=== PATIENT | female | born 1950 | race Caucasian/White ===

== ENCOUNTER 2018-01-01 02:58 | Emergency (ER) | payer MEDICARE ==
[~2018-01-01] VITALS: Ht 160 cm; Wt 80.0 kg
[~2018-01-01 02:58] MED LIST: ATEN-100 PO; CLON1 PO; DYAZ37.57 PO; KLOR8TAB PO; WELL200T PO
[2018-01-01 03:07] VITALS: BP 144/66; PULSE 78; RESP 14; TEMP 98.6; O2SAT 98
[2018-01-01] MEDS ORDERED: CLON1 PO (03:14)
[2018-01-01] MEDS ORDERED: BUPR150CR PO (03:14)
[2018-01-01] MEDS ORDERED: DYAZ37.5 PO (03:15)
[2018-01-01] MEDS ORDERED: KLOR8TAB PO (03:15)
--- NOTE | 2018-01-01 04:01 | RADRPT ---
EXAM DATE/TIME: 01/01/2018 03:32 [facility] COMPARISON: No previous studies available for comparison. INDICATIONS : Fall. Right shoulder pain. MEDICAL HISTORY : None. SURGICAL HISTORY : None. ENCOUNTER: Initial ACUITY: 1 day PAIN SCORE: 9/10 LOCATION: Right scapular FINDINGS: Single view of the right shoulder shows a comminuted fracture of the surgical and anatomic necks and also the greater tuberosity of the right humerus. The neck fracture has some associated medial displa cement and lateral angulation deformity. The tuberosity fracture does not appear significantly displa main. No subluxations. 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 CONCLUSION: Comminuted neck and greater tuberosity fracturing of the right humerus. Blaise Dobbins MD on January 01, 2018 at 3:59 Board Certified Radiologist. This report was verified electronically.
--- NOTE | 2018-01-01 04:02 | RADRPT ---
EXAM DATE/TIME: 01/01/2018 03:35 [facility] COMPARISON: No previous studies available for comparison. INDICATIONS : Fall. Right scapular pain. MEDICAL HISTORY : None. SURGICAL HISTORY : None. ENCOUNTER: Initial ACUITY: 1 day PAIN SCORE: 8/10 LOCATION: Right scapular FINDINGS: Two view examination of the right clavicle demonstrates no evidence of fracture. The sternoclavicula r joints and acromioclavicular joints are maintained. Bony mineralization is normal. CONCLUSION: Intact right clavicle. Blaise Dobbins MD on January 01, 2018 at 4:00 Board Certified Radiologist. This report was verified electronically.
--- NOTE | 2018-01-01 04:16 | PD ---
HPI Chief Complaint: Fall Time Seen by Provider: 03:05 Travel History International Travel<30 days: No Contact w/Intl Traveler<30days: No Traveled to known affect area: No History of Present Illness HPI Patient is a 67-year-old female who lives alone. She says she takes Klonopin 2 mg to go to sleep. Last night she took her medication to go to sleep and then she thought she saw the light motion sensor go on in her kitchen. She was very nervous she got up to go see. She had a rug that was rolled up that was a brand -new rug and she tripped over and fell against the floor and smashed her right shoulder. She was unable to move for half an hour she finally was able to call 911 and the paramedics found her to be lying on the floor and severe pain right shoulder en route she got 10 mg IV of morphine and on top of the Klonopin she takes to go to sleep she is very sedated. And her telling me of her history she is very tearful as she describes her situation and her recent passing away patient is in a sling pulse is sensation is intact distal to her fracture PFSH Past Medical History Asthma: No Anxiety: Yes (IVIS) Depression: Yes COPD: No Diminished Hearing: No Tetanus Vaccination: Unknown Influenza Vaccination: No Para: 1 Tubal Ligation: Yes Past Surgical History Cholecystectomy: Yes Hysterectomy: Yes Mastectomy: Yes (RIGHT) Social History Alcohol Use: Yes (RARE) Tobacco Use: No Substance Use: No Allergies-Medications (Allergen,Severity, Reaction): Coded Allergies: No Known Allergies (Verified Allergy, Severe, 01/01/18) Reported Meds & Prescriptions Reported Meds & Active Scripts Active Ibuprofen 600 Mg Tab 600 Mg PO Q6H PRN Reported Dyazide (Triamterene-Hydrochlorothiazide) 37.5-25 Mg Cap 1 Cap PO DAILY Klor-Con 8 (Potassium Chloride) 8 Meq Tab 8 Meq PO BID Klonopin (Clonazepam) 1 Mg Tab 1 Mg PO TID Wellbutrin SR 12 HR (Bupropion HCl) 150 Mg Tab 150 Mg PO Q12HR Review of Systems Except as stated in HPI: all other systems reviewed are Neg Physical Exam Narrative GENERAL: Patient is awake but she is very sedated talking very slowly tearful slurring words SKIN: Warm and dry. HEAD: Atraumatic. Normocephalic. EYES: Pupils equal and round. No scleral icterus. No injection or drainage. ENT: No nasal bleeding or discharge. Mucous membranes pink and moist. NECK: Trachea midline. No JVD. CARDIOVASCULAR: Regular rate and rhythm. RESPIRATORY: No accessory muscle use. Clear to auscultation. Breath sounds equal bilaterally. GASTROINTESTINAL: Abdomen soft, non-tender, nondistended. Hepatic and splenic margins not palpable. MUSCULOSKELETAL: Extremities patient's right shoulder severely tender and swollen. + obvious deformities. to right shoulder NEUROLOGICAL: Awake and alert. But sedated Data Data Last Documented VS Vital Signs Date Time Temp Pulse Resp B/P (MAP) Pulse Ox O2 Delivery O2 Flow Rate FiO2 01/01/18 09:11 01/01/18 07:42 77 18 100 Room Air 01/01/18 03:07 98.6 Orders Orders Shoulder, Complete (>2vws) (01/01/18 ) Clavicle (01/01/18 ) Sling And Swathe (01/01/18 ) Ed Discharge Order (01/01/18 07:26) Sling And Swathe (01/01/18 ) MDM Medical Decision Making Medical Screen Exam Complete: Yes Emergency Medical Condition: Yes Differential Diagnosis Differential diagnosis includes fractured shoulder versus dislocated shoulder versus clavicle fracture versus head trauma. Also intoxication with benzodiazepine Narrative Course Patient has a fractured shoulder humeral head not displaced not dislocated patient is placed into a sling she is given orthopedic Dr. Storey's number and will follow-up as an outpatient she is sleeping off the combination of the medication for pain the paramedics gave en route which was morphine 10 IV plus the 2 mg of Klonopin she took her home patient will be allowed to sleep in the ER until she is awake and discharged home to follow-up as an outpatient with Dr. Storey Diagnosis Primary Impression: Shoulder fracture, right Qualified Codes: S42.91XA - Fracture of right shoulder girdle, part unspecified, initial encounter for closed fracture Referrals: Rio Storey MD Patient Instructions: General Instructions, Shoulder Fracture in Children (ED) , Shoulder Pain (ED) Scripts Ibuprofen (Ibuprofen) 600 Mg Tab 600 MG PO Q6H Y for Pain/Inflammation, #40 TAB 0 Refills Prov: Yinka Daley MD 01/01/18 Disposition: 01 DISCHARGE HOME Condition: Good Yinka Daley MD Jan 01, 2018 04:16
[2018-01-01 06:01] VITALS: BP 138/64; PULSE 78; RESP 16; O2SAT 96
[2018-01-01] MEDS ORDERED: IBUP-232 PO (07:15)
[2018-01-01 07:42] VITALS: BP 141/67; PULSE 77; RESP 18; O2SAT 100
== END 2018-01-01 09:12 | disposition home or self-care (01) ==
LOC: NEPC 02:58
DX: S42.251A Displaced fracture of greater tuberosity of right humerus, initial encounter for closed fracture (principal); S42.291A Other displaced fracture of upper end of right humerus, initial encounter for closed fracture; F41.9 Anxiety disorder, unspecified; F32.9 Major depressive disorder, single episode, unspecified; Z79.899 Other long term (current) drug therapy; W01.0XXA Fall on same level from slipping, tripping and stumbling without subsequent striking against object, initial encounter
CPT/HCPCS: 29240; 73000; 73030